=== PATIENT | male | born 1985 | race African-American/Black ===

== ENCOUNTER 2021-04-26 14:13 | Inpatient (IN) | payer SELFPAY ==
[~2021-04-26] VITALS: Ht 188 cm; Wt 69.9 kg
[2021-04-26] MEDS ORDERED: MIDAZOLAM HCL 5 MG/ML VIAL IM ONE (15:00)
[2021-04-26] MEDS ORDERED: DiphenhydrAMINE HCL 50 MG/ML VIAL IM ONE (15:00)
[2021-04-26] MEDS ORDERED: HALOPERIDOL LACTATE 5 MG/ML VIAL IM ONE (15:00)
[2021-04-26 15:17] LABS: COVID AG,FIA SOURCE NASOPHARYNGEAL
[2021-04-26 16:13] LABS: BASOPHILS % (AUTO) 0.5 % (0.0-2.0); EOSINOPHILS % (AUTO) 0.4 % (1.0-6.0); HEMATOCRIT 41.9 % (41-53); HEMOGLOBIN 13.9 g/dL (13.5-17.5); LYMPHOCYTES # (AUTO) 0.8 K/uL (1.0-4.8); LYMPHOCYTES % (AUTO) 13.9 % (22.0-44.0); MEAN CORPUSCULAR HEMOGLOBIN 27.5 pg (26.0-34.0); MEAN CORPUSCULAR HGB CONC 33.2 G/dL (31.0-37.0); MEAN CORPUSCULAR VOLUME 83 fL (80-100); MONOCYTES # (AUTO) 0.4 K/uL (0.1-1.0); MONOCYTES % (AUTO) 7.2 % (2.0-9.0); NEUTROPHILS # (AUTO) 4.5 K/uL (1.8-7.7); PLATELET COUNT (AUTO) 238 K/uL (150-450); RED BLOOD CELL COUNT(AUTO) 5.06 MIL/uL (4.50-5.90); RED CELL DISTRIBUTION WIDTH 12.9 % (11.5-14.5)
[2021-04-26 16:23] LABS: ANION GAP 7 mmol/L (8-16); CALCIUM, TOTAL 9.8 mg/dL (8.8-10.5); CARBON DIOXIDE 27 mmol/L (22-29); CHLORIDE 105 mmol/L (98-107); CREATININE 1.17 mg/dL (0.60-1.30); GLOMERULAR FILTR. RATE CALC > 60 mL/min (>60); GLUCOSE,RANDOM 79 mg/dL (70-110); POTASSIUM 3.9 mmol/L (3.5-5.1); SODIUM SERUM 139 mmol/L (136-145); UREA NITROGEN, BLOOD 14 mg/dL (7-18)
[2021-04-26 16:27] LABS: LITHIUM < 0.20 mmol/L (0.60-1.20)
[2021-04-26 16:29] LABS: ALANINE AMINOTRANSFERASE 27 U/L (12-78); ALBUMIN 4.1 g/dL (3.4-5.0); ALKALINE PHOSPHATASE 59 U/L (46-116); ASPARTATE AMINOTRANSFERASE 34 U/L (15-37); BILIRUBIN,TOTAL 0.5 mg/dL (0.1-1.0); TOTAL PROTEIN, SERUM 7.2 g/dL (6.4-8.2)
[2021-04-26 16:30] LABS: VALPROIC ACID < 3 mcg/mL (50-100)
[2021-04-26] MEDS ORDERED: ZOLPIDEM TARTRATE 10 MG TABLET PO PRN (18:15)
[2021-04-27 01:27] LABS: CHOL/HDL RATIO 2.8 (4.2-7.3); CHOLESTEROL 174 mg/dL (131-200); HDL CHOLESTEROL 62 mg/dL (40-60); LDL CHOL (CALC.) 98 mg/dL (0-130); TRIGLYCERIDES 69 mg/dL (15-150)
[2021-04-27] MEDS: LORazepam 2 MG TABLET PO PRN ×2 (07:56→08:01)
[2021-04-27] MEDS: HALOPERIDOL 5 MG TABLET PO PRN ×2 (07:56→08:00)
[2021-04-27] MEDS ORDERED: MAG HYDROX/AL HYDROX/SIMETH ES 30 ML SUSPENSION UDCUP PO PRN (14:15)
[2021-04-27] MEDS ORDERED: NICOTINE 14 MG/24 HOUR PATCH TD PRN (14:15)
[2021-04-27] MEDS ORDERED: DOCUSATE SODIUM 100 MG CAPSULE PO PRN (14:15)
[2021-04-27] MEDS ORDERED: CloNIDine HCL 0.1 MG TABLET PO PRN (14:15)
[2021-04-27] MEDS ORDERED: LOPERAMIDE HCL 2 MG CAPSULE PO PRN (14:15)
[2021-04-27] MEDS ORDERED: ALBUTEROL SULFATE HFA 90 MCG/PUFF 8 GM INHALER IH PRN (14:15)
[2021-04-27] MEDS ORDERED: GuaiFENesin/D-METHORPHAN [SUGAR-FREE] 200-20MG/10 ML SYRUP UDCUP PO PRN (14:15)
[2021-04-27] MEDS ORDERED: PETROLATUM,WHITE 28 GM JELLY TP PRN (14:15)
[2021-04-27] MEDS ORDERED: ACETAMINOPHEN 325 MG TABLET PO PRN (14:15)
[2021-04-27] MEDS ORDERED: ONDANSETRON HCL 4 MG TABLET PO PRN (14:15)
[2021-04-27] MEDS ORDERED: IBUPROFEN 400 MG TABLET PO PRN (14:15)
[2021-04-27] MEDS ORDERED: MAGNESIUM HYDROXIDE SUSPENSION 30 ML UDCUP PO PRN (14:15)
[2021-04-27 16:17] VITALS: BP 153/84
[2021-04-27] MEDS ORDERED: INFLUENZA VIRUS VACCINE QVS 2021-22 (6MO+)/PF 60 MCG/0.5 ML SYRINGE IM. ONE (21:00)
[2021-04-28 07:19] VITALS: BP 142/81
[2021-04-28 08:08] VITALS: BP 112/62
[2021-04-28] MEDS: RisperiDONE 2 MG TABLET PO SCH ×2 (10:00→21:00)
[2021-04-28 16:10] VITALS: BP 106/69
[2021-04-29 04:48] VITALS: BP 118/80
[2021-04-29 08:25] VITALS: BP 115/82
[2021-04-29] MEDS: RisperiDONE 2 MG TABLET PO SCH ×2 (08:36→20:45)
[2021-04-29 16:33] VITALS: BP 112/75
[2021-04-30 01:26] VITALS: BP 114/68
[2021-04-30 08:32] VITALS: BP 100/65
[2021-04-30] MEDS: RisperiDONE 2 MG TABLET PO SCH ×2 (08:37→20:25)
[2021-04-30 16:20] VITALS: BP 103/65
[2021-05-01 04:52] VITALS: BP 114/64
[2021-05-01] MEDS: RisperiDONE 2 MG TABLET PO SCH ×2 (08:27→20:30)
[2021-05-01 08:56] VITALS: BP 150/90
[2021-05-01 16:27] VITALS: BP 121/74
[2021-05-02 00:24] VITALS: BP 122/70
[2021-05-02] MEDS: RisperiDONE 2 MG TABLET PO SCH ×2 (09:00→21:00)
[2021-05-02 16:17] VITALS: BP 102/66
[2021-05-03 05:48] VITALS: BP 118/70
[2021-05-03] MEDS: RisperiDONE 2 MG TABLET PO SCH ×2 (08:14→20:58)
[2021-05-03 09:01] VITALS: BP 120/68
[2021-05-03 16:05] VITALS: BP 127/86
[2021-05-04 04:22] VITALS: BP 128/78
[2021-05-04] MEDS: RisperiDONE 2 MG TABLET PO SCH ×2 (08:54→21:00)
[2021-05-04 16:08] VITALS: BP 121/69
[2021-05-05] MEDS: RisperiDONE 2 MG TABLET PO SCH ×2 (08:14→21:00)
[2021-05-05 08:20] VITALS: BP 107/71
[2021-05-05 16:20] VITALS: BP 112/71
[2021-05-06 03:39] VITALS: BP 114/68
[2021-05-06 03:40] VITALS: BP 118/65
[2021-05-06 08:27] VITALS: BP 115/72
[2021-05-06] MEDS: RisperiDONE 2 MG TABLET PO SCH ×2 (09:00→21:00)
[2021-05-06 16:06] VITALS: BP 140/95
[2021-05-07 04:45] VITALS: BP 136/84
[2021-05-07 08:02] VITALS: BP 120/82
[2021-05-07] MEDS: RisperiDONE 2 MG TABLET PO SCH ×2 (09:00→20:34)
[2021-05-07 16:10] VITALS: BP 110/74
[2021-05-08 03:30] VITALS: BP 118/72
[2021-05-08 08:04] VITALS: BP 136/69
[2021-05-08] MEDS: RisperiDONE 2 MG TABLET PO SCH ×2 (08:25→20:50)
[2021-05-08 16:06] VITALS: BP 127/88
[2021-05-09 02:01] VITALS: BP 122/72
[2021-05-09 08:18] VITALS: BP 148/77
[2021-05-09] MEDS: RisperiDONE 2 MG TABLET PO SCH (08:23)
[2021-05-09] MEDS ORDERED: RISP2TAB86 PO (09:16)
== END 2021-05-09 13:51 | disposition home or self-care (01) | DRG 885 ==
LOC: EMS 14:19 → B3A 04-27 13:17
PROVIDERS: ADMIT Psychiatry & Neurology Psychiatry; ATTEND Psychiatry & Neurology Psychiatry
DX: F20.0 Paranoid schizophrenia (principal); G93.40 Encephalopathy, unspecified; Z20.822 Contact with and (suspected) exposure to COVID-19; G44.209 Tension-type headache, unspecified, not intractable; Z91.51 Personal history of suicidal behavior; Z78.1 Physical restraint status
CPT/HCPCS: 80053; 80061; 80164; 80178; 85025; 99291; G0480; J2250